=== PATIENT | male | born 1975 | race Hispanic/Latino ===

== ENCOUNTER 2021-10-06 04:17 | Emergency (ER) | payer OTHER ==
[~2021-10-06] VITALS: Ht 182.9 cm; Wt 60.8 kg
[2021-10-06 06:06] VITALS: BP 116/70
[2021-10-06] MEDS ORDERED: TETANUS/DIPHTHERIA TOXOID [ADULT] 0.5 ML VIAL IM ONE (06:30)
[2021-10-06] MEDS ORDERED: ACETAMINOPHEN 500 MG TABLET PO ONE (06:30)
== END 2021-10-06 06:46 ==
LOC: EDH 04:17
DX: S80.12XA Contusion of left lower leg, initial encounter (principal); S40.212A Abrasion of left shoulder, initial encounter; V49.49XA Driver injured in collision with other motor vehicles in traffic accident, initial encounter; Y93.89 Activity, other specified; Y92.89 Other specified places as the place of occurrence of the external cause; Y99.8 Other external cause status
CPT/HCPCS: 73030; 73590; 90471; 90714